=== PATIENT | female | born 1935 | race Caucasian/White ===

== ENCOUNTER → 2016-06-28 | Outpatient (CLI) | payer OTHER ==
[~2016-06-28] MED LIST: AMLO-110 PO; ANT25 PO; ATOR10TA82 PO; FLUT0.15 NAE; GLC/500 PO; POTA10TA PO; PRLSR20 PO; ZNTT/150 PO
--- NOTE | 2016-06-29 15:18 | MAMMOGRAPHY REPORT ---
BILATERAL DIGITAL SCREENING MAMMOGRAM TOMOSYNTHESIS WITH CAD: 06/28/2016 CLINICAL HISTORY: Routine screening examination. TECHNIQUE: Breast tomosynthesis in addition to standard 2D mammography was performed. Current study was also evaluated with a Computer Aided Detection (CAD) system. COMPARISON: Comparison is made to exams dated: 06/25/2015 mammogram, 06/24/2014 mammogram, 06/22/2013 nadja mogram, 06/21/2012 mammogram, 06/16/2011 mammogram, and 03/17/2010 mammogram - [facility] nter. BREAST COMPOSITION: There are scattered areas of fibroglandular density in both breasts. FINDINGS: There are benign-appearing rodlike calcifications throughout each breast. No suspicious m ass, architectural distortion or cluster of microcalcifications is seen. IMPRESSION: ACR BI-RADS CATEGORY 1: NEGATIVE There is no mammographic evidence of malignancy. A 1 year screening mammogram is recommended. The p atient will receive written notification of the results. Approximately 10% of breast cancers are not detected with mammography. A negative mammographic repor t should not delay biopsy if a clinically suggestive mass is present. Aida Canchola M.D. ay/:06/28/2016 16:48:30 [employer] Tank Repairer: Maria UNDERWOOD(Candida)(Dina), [facility] letter sent: Normal 1/2 BI-RADS Code: ACR BI-RADS Category 1: Negative
== END | disposition home or self-care (01) ==
LOC: C.MAMM 13:49
PROVIDERS: ATTEND Family Medicine
DX: Z12.31 Encounter for screening mammogram for malignant neoplasm of breast (principal)

== ENCOUNTER → 2016-07-07 | Outpatient (CLI) | payer OTHER ==
[2016-07-07 20:04] LABS: BLOOD UREA NITROGEN 13 mg/dl (7-18); BUN/CREATININE RATIO 16.1 (10-20); CALCIUM 9.8 mg/dl (8.5-10.1); CARBON DIOXIDE 25 mmol/L (21-32); CHLORIDE 108 mmol/L (98-107); CREATININE 0.78 mg/dl (0.60-1.20); GLUCOSE 88 mg/dl (70-99); POTASSIUM 4.1 mmol/L (3.5-5.1); SODIUM 143 mmol/L (136-145); TRIGLYCERIDES 159 mg/dl (0-150); VERY LOW DENSITY LIPOPROT CALC 32 mg/dl
[2016-07-07 20:08] LABS: CHOLESTEROL 143 mg/dl (0-200); CHOLESTEROL/HDL RATIO 3.2; HDL CHOLESTEROL 45 mg/dl; LDL CHOLESTEROL CALCULATED 66 mg/dl
[2016-07-08 07:34] LABS: ESTIMATED AVERAGE GLUCOSE 120 mg/dl; HA1C FLAG Normal (Normal)
== END | disposition home or self-care (01) ==
LOC: C.LABPVFM 14:16
PROVIDERS: ATTEND Family Medicine
DX: I10 Essential (primary) hypertension (principal); E11.9 Type 2 diabetes mellitus without complications; E78.2 Mixed hyperlipidemia

== ENCOUNTER → 2016-12-29 | Outpatient (CLI) | payer OTHER ==
[~2016-12-29] MED LIST changes: -ATOR10TA82 PO; +ATOR10TA88 PO
[2016-12-29 12:28] LABS: BLOOD UREA NITROGEN 14 mg/dl (7-18); BUN/CREATININE RATIO 17.3 (10-20); CALCIUM 9.5 mg/dl (8.5-10.1); CARBON DIOXIDE 31 mmol/L (21-32); CHLORIDE 108 mmol/L (98-107); CHOLESTEROL 150 mg/dl (0-200); CREATININE 0.83 mg/dl (0.60-1.20); GLUCOSE 105 mg/dl (70-99); POTASSIUM 3.8 mmol/L (3.5-5.1); SODIUM 142 mmol/L (136-145); TRIGLYCERIDES 148 mg/dl (0-150); VERY LOW DENSITY LIPOPROT CALC 30 mg/dl
[2016-12-29 12:31] LABS: CHOLESTEROL/HDL RATIO 3.5; ESTIMATED AVERAGE GLUCOSE 123 mg/dl; HA1C FLAG Normal (Normal); HDL CHOLESTEROL 43 mg/dl; LDL CHOLESTEROL CALCULATED 77 mg/dl
== END | disposition home or self-care (01) ==
LOC: C.LABBFT 10:07
PROVIDERS: ATTEND Family Medicine
DX: Z00.00 Encounter for general adult medical examination without abnormal findings (principal); E11.9 Type 2 diabetes mellitus without complications; E78.2 Mixed hyperlipidemia

== ENCOUNTER 2017-06-12 10:06 | Emergency (ER) | payer OTHER ==
[~2017-06-12] VITALS: Ht 157.5 cm; Wt 75.2 kg
[~2017-06-12 10:06] MED LIST changes: +ATOR10TA82 PO; -ATOR10TA88 PO; +RANI150T85 PO; -ZNTT/150 PO
[2017-06-12 10:09] VITALS: TEMP 37; Ht 157.5 cm; Wt 75.2 kg
[2017-06-12] MEDS ORDERED: AMOXICILLIN/CLAVULANATE TAB 875 MG TAB PO ONE (10:30)
[2017-06-12] MEDS ORDERED: GLC/500 PO (10:43)
--- NOTE | 2017-06-12 10:44 | EMERGENCY ROOM VISIT NOTE ---
History Report prepared by Anthony: Martin Decker Under the Supervision of: Dr. Ed Ang D.O. First contact with patient: 10:12 Chief Complaint: FEVER Stated Complaint: HIGH TEMP, PAIN CHEST AND SINUSES History of Present Illness The patient is an 82 year old female who presents to the Emergency Room with complaints of constant flu-like symptoms beginning three days. The patient states she believes she has a sinus infection. She reports she is experiencing pain in her frontal and maxillary sinuses, a cough, chest tightness, and a fever. The patient notes she did not start antibiotics because she did not have any. She denies any other complaint. Source of History: patient Onset: three days ago Quality: other (flu-like sx) Timing: constant Associated Symptoms: + fevers, + cough Note: Associated symptoms: pain to the frontal and maxillary sinuses, chest tightness Review of Systems See HPI for pertinent positives & negatives. A total of 10 systems reviewed and were otherwise negative. Past Medical & Surgical Medical Problems: (1) Borderline diabetes Family History Patient reports no known family medical history. Social History Smoking Status: Never Smoker Drug Use: none Marital Status: Housing Status: lives with family Occupation Status: retired Current/Historical Medications Scheduled Amlodipine (Norvasc), 5 MG PO QAM Amoxicillin & Pot Clavulanate (Augmentin 875-125 mg), 875 MG PO BID Atorvastatin (Lipitor), 10 MG PO QPM Fluticasone Propionate (Nasal) (Flonase Allergy Relief), 1 SPRAY ANIL QAM Meclizine HCl (Meclizine HCl), 1 TAB PO BID Metformin Hcl (Glucophage), 500 MG PO BID Metformin Hcl (Glucophage), 500 MG PO BID Omeprazole (Prilosec), 20 MG PO QAM Potassium Chloride (K-Tabs), 1 TAB PO BID Allergies Coded Allergies: No Known Allergies (Verified , 06/12/17) Physical Exam Vital Signs Date Time Temp Pulse Resp B/P (MAP) Pulse Ox O2 Delivery O2 Flow Rate FiO2 06/12/17 10:56 91 20 142/77 96 06/12/17 10:09 37.0 98 20 147/80 95 Room Air Physical Exam CONSTITUTIONAL/VITAL SIGNS: Reviewed / noted above. GENERAL: Non-toxic in appearance. INTEGUMENTARY: Warm, dry, and [place]. HEAD: Normocephalic. Tenderness to percussion to the frontal and maxillary sinuses. EYES: without scleral icterus or trauma. ENT/OROPHARYNX: clear and moist. LYMPHADENOPATHY/NECK: Is supple without lymphadenopathy or meningismus. RESPIRATORY: Lungs clear and equal. CARDIOVASCULAR: Regular rate and rhythm. GI/ABDOMEN: Soft and nontender. No organomegaly or pulsatile mass. No rebound or guarding. Normal bowel sounds. EXTREMITIES: Warm and well perfused. BACK: No CVA tenderness. NEUROLOGICAL: Intact without focal deficits. PSYCHIATRIC: normal affect. MUSCULOSKELETAL: Normally developed with good muscle tone. Medical Decision & Procedures Medications Administered Medications (Trade) Dose Ordered Sig/Aleena Route Start Time Stop Time Status Last Admin Dose Admin Amoxicillin/ Clavulanate Potassium (Augmentin Tab) 875 mg ONE ONCE PO 06/12/17 10:30 06/12/17 10:31 DC 06/12/17 10:37 875 MG ED Course 1022: Previous medical records were reviewed. The patient was evaluated in room B10. A complete history and physical examination was performed. I discussed the patient's physical exam with her and the treatment plan. She verbalized complete understandings. The patient will be discharged home after she receives her medication. 1030: Ordered Augmentin Tab 875mg PO Medical Decision Differential includes viral illness, influenza, streptococcal pharyngitis, meningitis, pneumonia, sinusitis, UTI, pyelonephritis, otitis media. This is an 82-year-old female who presents to the ED with a chief complaint that she has a sinus infection. She has had the symptoms for about 3 or 4 days. She reports fullness in her sinuses as well as some congestion and fever. She also reports a cough. The patient's vital signs are normal. Her physical exam revealed tenderness to percussion of the sinuses and the frontal and maxillary regions. She otherwise is in no distress. The patient primarily just wants to be started on antibiotics for her sinus infection. She did not require additional workup at this time. She was discharged on Augmentin. Medication Reconcilliation Current Medication List: was personally reviewed by me Blood Pressure Screening Patient's blood pressure: Elevated blood pressure Blood pressure disposition: Elevated BP felt to be situational Impression Primary Impression: Sinusitis Scribe Attestation The scribe's documentation has been prepared under my direction and personally reviewed by me in its entirety. I confirm that the note above accurately reflects all work, treatment, procedures, and medical decision making performed by me. Departure Information Dispostion Home / Self-Care Prescriptions Amoxicillin & Pot Clavulanate (Augmentin 875-125 mg) 1 Tab Tab 875 MG PO BID, #14 TAB Prov: Ed Ang D.O. 06/12/17 Referrals Richmond Hartman M.D. (PCP) Forms HOME CARE DOCUMENTATION FORM, IMPORTANT VISIT INFORMATION Patient Instructions [facility] Additional Instructions Take Augmentin as prescribed. If not improved in 1 week, see her doctor for further evaluation.
[2017-06-12] MEDS ORDERED: AMOX875T PO (10:51)
[2017-06-12 10:56] VITALS: BP 142/77; PULSE 91; O2SAT 96
== END 2017-06-12 10:57 | disposition home or self-care (01) ==
LOC: C.EDB 10:08
DX: J32.9 Chronic sinusitis, unspecified (principal); R03.0 Elevated blood-pressure reading, without diagnosis of hypertension; R73.03 Prediabetes; Z79.84 Long term (current) use of oral hypoglycemic drugs

== ENCOUNTER → 2017-06-15 | Outpatient (CLI) | payer OTHER ==
[~2017-06-15] MED LIST changes: +AMOX875T PO; -RANI150T85 PO
== END | disposition home or self-care (01) ==
LOC: C.LABBFT 14:04
PROVIDERS: ATTEND Nurse Practitioner
DX: R19.7 Diarrhea, unspecified (principal)

== ENCOUNTER → 2017-06-30 | Outpatient (CLI) | payer OTHER ==
[~2017-06-30] MED LIST changes: -AMOX875T PO
--- NOTE | 2017-07-01 07:46 | MAMMOGRAPHY REPORT ---
BILATERAL DIGITAL SCREENING MAMMOGRAM TOMOSYNTHESIS WITH CAD: 06/30/2017 CLINICAL HISTORY: Routine screening. Patient has no complaints. TECHNIQUE: Breast tomosynthesis in addition to standard 2D mammography was performed. Current study was also evaluated with a Computer Aided Detection (CAD) system. COMPARISON: Comparison is made to exams dated: 06/28/2016 mammogram, 06/25/2015 mammogram, 06/24/2014 nadja mogram, 06/22/2013 mammogram, 06/21/2012 mammogram, and 06/16/2011 mammogram - [facility] BREAST COMPOSITION: There are scattered areas of fibroglandular density in both breasts. FINDINGS: No suspicious masses, calcifications, or areas of architectural distortion are noted in ei ther breast. There has been no significant interval change compared to prior exams. Scattered bilater al benign-appearing calcifications are not significantly changed. Asymmetry in the right lateral rachelle ast middle depth on the cc view appears similar to prior exams including the 2008 exam. IMPRESSION: ACR BI-RADS CATEGORY 2: BENIGN There is no mammographic evidence of malignancy. A 1 year screening mammogram is recommended. The pa tient will receive written notification of the results. Approximately 10% of breast cancers are not detected with mammography. A negative mammographic report should not delay biopsy if a clinically suggestive mass is present. Italia Altamirano M.D. /:06/30/2017 14:38:07 Provider Relations Rep: Sandra CAMACHO)(Dina), [facility] letter sent: Normal 1/2 BI-RADS Code: ACR BI-RADS Category 2: Benign
== END | disposition home or self-care (01) ==
LOC: C.MAMM 13:50
PROVIDERS: ATTEND Internal Medicine
DX: Z12.31 Encounter for screening mammogram for malignant neoplasm of breast (principal)

== ENCOUNTER → 2017-10-24 | Outpatient (CLI) | payer OTHER ==
[~2017-10-24] MED LIST changes: -AMLO-110 PO; +AMLO5TAB3 PO
[2017-10-24 12:50] LABS: HEMOGLOBIN A1C 5.5 % (4.5-5.6)
[2017-10-24 12:59] LABS: ALBUMIN 3.5 gm/dl (3.4-5.0); ALKALINE PHOSPHATASE 79 U/L (45-117); ALT/SGPT 26 U/L (12-78); AST/SGOT 33 U/L (15-37); BLOOD UREA NITROGEN 12 mg/dl (7-18); CALCIUM 8.9 mg/dl (8.5-10.1); CARBON DIOXIDE 28 mmol/L (21-32); CHOLESTEROL 136 mg/dl (0-200); CREATININE 0.74 mg/dl (0.60-1.20); GLUCOSE 109 mg/dl (70-99); LDL CHOLESTEROL CALCULATED 72 mg/dl; POTASSIUM 3.9 mmol/L (3.5-5.1); SODIUM 139 mmol/L (136-145); TOTAL PROTEIN 7.6 gm/dl (6.4-8.2)
== END | disposition home or self-care (01) ==
LOC: C.LABBFT 09:47
PROVIDERS: ATTEND Internal Medicine
DX: Z00.00 Encounter for general adult medical examination without abnormal findings (principal); E11.9 Type 2 diabetes mellitus without complications; E78.2 Mixed hyperlipidemia; I10 Essential (primary) hypertension

== ENCOUNTER 2023-04-12 11:47 | Observation (INO) ==
--- NOTE | 2023-04-11 13:55 | Anesthesiology Consultation ---
Date of Service April 11, 2023 Assessment & Plan (1) Encounter for pre-operative examination: Chart Review Chart Review: Acceptable Risk for Surgery and Patient NOT seen in Pre Admission Testing - Check BSG AM DOS -Infectious Disease screening: Per PAT nursing assessment on 04/11/23. No known infectious disease contacts in past 10 days or current infectious disease symptoms. No recent travel outside the country. Patient seen in [facility] 04/07/23= Patient seen for shoulder pain. Had a fall while taking dogs outslipped on snow. Diagnosed with humeral head fracture on left side, fall, cervical strain. Placed in sling. Patient will follow-up with orthopedic surgeon in the morning as outpatient. History Surgery Operation Date: 04/12/23 13:55 Proposed Procedures p Left Fracture Reverse Total Shoulder Arthroplasty - Vick Ernst DO Height/Weight Height: 5 ft 2 in Weight: 77.111 kg Allergies Allergy/AdvReac Type Severity Reaction Status Date / Time No Known Allergies Allergy Unknown Verified 04/12/23 12:38 Medications Home Medications Medication Instructions Recorded Confirmed Last Taken fluocinonide 0.05 % topical 1 appln topical BID PRN itching of 12/20/18 04/12/23 Unknown solution scalp #20 mL triamcinolone acetonide 0.1 % 1 appln topical BID PRN itching 09/25/19 04/12/23 Unknown topical cream #454 grams fluticasone propionate 50 2 spray intranasal DAILY #3 device 04/19/22 04/12/23 04/07/23 mcg/actuation nasal spray,suspension (Flonase Allergy Relief) ondansetron 4 mg disintegrating 4 mg PO Q6H PRN nausea and 09/15/22 04/12/23 Unknown tablet vomiting #30 tabs gabapentin 300 mg capsule See Rx Instructions .Route 11/16/22 04/12/23 04/10/23 21:00 .COMPLEX #270 caps meclizine 25 mg tablet 25 mg PO BID PRN vertigo 11/29/22 04/12/23 04/11/23 09:00 #180 tabs azelastine 137 mcg (0.1 %) nasal 2 spray intranasal BID #30 mL 01/18/23 04/12/23 04/07/23 spray aerosol tramadol 50 mg tablet 50 mg PO BID PRN pain #60 tabs 01/18/23 04/12/23 Unknown omega-3 fatty acids 1,000 mg 3,000 mg PO DAILY 04/07/23 04/12/23 04/07/23 capsule atorvastatin 10 mg tablet (Lipitor) 10 mg PO QAM 04/11/23 04/12/23 04/10/23 21:00 furosemide 40 mg tablet 20 mg PO QAM 04/11/23 04/12/23 04/07/23 hydrocodone 5 mg-acetaminophen 325 1 - 2 tab PO Q6 PRN pain #20 tabs 04/11/23 04/12/23 04/09/23 mg tablet losartan 25 mg tablet 25 mg PO QAM 04/11/23 04/12/23 04/11/23 09:00 metformin 500 mg tablet,extended 500 mg PO HS 04/11/23 04/12/23 04/11/23 21:00 release 24 hr omeprazole 20 mg capsule,delayed 20 mg PO QAM 04/11/23 04/12/23 04/10/23 09:00 release potassium chloride 10 mEq 10 meq PO QAM 04/11/23 04/12/23 Unknown capsule,extended release Past Medical History Medical History Acid reflux Allergic rhinitis Coccydynia Diverticulosis of colon Hiatal hernia Hip pain, bilateral History of basal cell carcinoma (BCC) left ear Hyperlipidemia Hypertension Kidney stones passed on own Lumbar stenosis with neurogenic claudication Migraine "silent" gets floaters Moderate aortic stenosis echo 06/2021 > no cardio Osteoarthritis Spinal stenosis Splenomegaly Type 2 diabetes mellitus NIDDM Past Family History Family History Sister Brain tumor Unknown Brain tumor Denies family history of Ovarian cancer Prostate cancer Breast cancer Colorectal cancer Past Surgical History Surgical History H/O: hysterectomy History of colonoscopy History of repair of right rotator cuff History of tooth extraction Hx of nasal polypectomy S/P cholecystectomy Social History Smoking Status: Never smoker Do You Dip or Chew Tobacco: No Hx Alcohol Use: No Hx Substance Use: No substance use type: does not use Physical Exam Vital Signs Last Vital Signs Temp 37.5 C 04/12/23 12:52 Pulse 91 H 04/12/23 12:52 Resp 20 04/12/23 12:52 BP 153/50 H 04/12/23 12:52 Pulse Ox 94 04/12/23 12:52 O2 Del Method Room Air 04/12/23 12:52 Lab Results Anesthesia Preop Results Results Anesthesia Widget: WBC 6.77 K/ul (4.8-10.8) 04/07/23 Hgb 11.3 g/dl (12.0-16.0) L 04/07/23 Hct 33.5 % (37.0-47.0) L 04/07/23 Plt 116 K/uL (130-400) L 04/07/23 Na 140 mmol/L (136-145) 04/07/23 K 4.0 mmol/L (3.5-5.1) 04/07/23 Cl 108 mmol/L (98-107) H 04/07/23 CO2 27 mmol/L (21-32) 04/07/23 BUN 16 mg/dl (6-23) 04/07/23 Creat 0.70 mg/dl (0.6-1.2) 04/07/23 Glucose Level 139 mg/dl (70-99(Fasting)) H 04/07/23 POC Glucose 118 mg/dl (70-99) H 04/12/23 PT 13.5 Seconds (9.0-12.0) H 04/12/23 PTT 27 Seconds (21-31) 04/12/23 INR 1.2 (0.9-1.1) H 04/12/23 Blood Type Pending 04/12/23 Antibody Screen Pending 04/12/23 Testing Laboratory Results PT 13.5 Seconds (9.0-12.0) H 04/12/23 12:34 INR 1.2 (0.9-1.1) H 04/12/23 12:34 APTT 27 Seconds (21-31) 04/12/23 12:34 04/12/23 12:21 POC Glucose 118 H Electrocardiogram Date: 04/07/23 Findings: + NSR @ (75bpm) Normal EKG per cardio Chest X-Ray Date: 04/07/23 FINDINGS: No pneumothorax. No pleural effusions. Prior cholecystectomy. Bibasilar linear densities favor subsegmental atelectasis. Otherwise, lungs are clear. No evidence for pulmonary edema. The heart remains mildly enlarged. There is a mildly tortuous and partially calcified thoracic aorta, unchanged. Left humeral head/neck fracture again noted. IMPRESSION: An acute left humeral head/neck fracture. Echocardiogram Date: 06/25/21 EF: >70% Other Findings: no LVH Hyperdynamic LV systolic function Normal RV systolic function Mild left atrial dilation Mild to moderate aortic stenosis. The calculated aortic valve area and dimensionless valve index are consistent with moderate stenosis. Mean gradient across the valve is consistent with mild stenosis. (ARLETTE 0.98cm2; AV max velocity 2.735m/s; AV mean P.66mmHg) Trace AR. Trace MR. Trace R Mildly elevated estimated RVSP (34mmHg) Other Testing Head CT 04/07/2023 = no acute intracranial hemorrhage, midline shift, or mass effect Cervical spine CT 04/07/2023 = no acute fracture or subluxation of cervical spine
[~2023-04-12 11:47] MED LIST changes: +ACETAMINOPHEN 500 MG TAB PO SCH; -AMLO5TAB3 PO; -ANT25 PO; -ATOR10TA82 PO; +BUPIVACAINE 0.5 % 5 MG/1 ML PF 10ML VIAL ONE; +FAMOTIDINE 20 MG TAB PO SCH; -FLUT0.15 NAE; +GABAPENTIN 300 MG CAP PO SCH; -GLC/500 PO; +LR 15ML/HR IV SCH; +LR 60ML/HR IV SCH; -POTA10TA PO; -PRLSR20 PO; +ROPIVACAINE 0.5% HCL/PF 246 MG, Ketorolac (*for OR use only*) 30 MG, EPINEPHrine 30MG/3... INFIL SCH; +TRANEXAMIC ACID 1,000 MG **IV Intra-op IV SCH; +TRANEXAMIC ACID 1,000 MG **IV Pre-op IV SCH; +ceFAZolin 2000MG 2,000 MG/15 ML SYR IV SCH; +dexAMETHasone**PF** 10 MG/ML VIAL IV SCH
--- NOTE | 2023-04-12 12:44 | History & Physical Bridge Note ---
Date of Service April 12, 2023 History & Physical Bridge Note I have examined the patient, reviewed the History & Physical and in the interval since the performance of the History & Physical I have noted the following changes of clinical significance: no changes noted
[2023-04-12 13:11] LABS: INR 1.2 (0.9-1.1); Partial Thromboplastin Time 27 Seconds (21-31); Prothrombin Time 13.5 Seconds (9.0-12.0)
[2023-04-12] MEDS ORDERED: ceFAZolin 2000MG 2,000 MG/15 ML SYR IV ONE (13:22)
[2023-04-12] MEDS ORDERED: TRANEXAMIC ACID / 0.7% NACL 1,000 MG/100 ML BAG IV ONE (13:23)
[2023-04-12] MEDS ORDERED: fentaNYL citrate PF 100 MCG/2 ML VIAL ONE (14:03)
[2023-04-12] MEDS ORDERED: LIDOCAINE 2% 2 ML VIAL/AMP(20MG/ML) INFIL ONE (14:27)
[2023-04-12] MEDS ORDERED: PROPOFOL IV EMULSION 10 MG/ML 20 ML VIAL IV ONE (14:27)
[2023-04-12] MEDS ORDERED: ONDANSETRON INJ 2 MG/ML 2 ML VIAL ONE (14:27)
[2023-04-12] MEDS ORDERED: ROPIV 0.5% 246mg, Ketorolac 30mg, EPINEPHrine 0.5mg in NSS INFIL SCH (15:00)
[2023-04-12] MEDS ORDERED: fentaNYL citrate PF 100 MCG/2 ML VIAL IV PRN (15:38)
[2023-04-12] MEDS ORDERED: ONDANSETRON INJ 2 MG/ML 2 ML VIAL IV PRN ×2 (15:38→18:21)
[2023-04-12] MEDS ORDERED: LABETALOL HCL IV 5 MG/ML 20ML IV PRN (15:38)
[2023-04-12] MEDS ORDERED: PROMETHAZINE HCL 12.5 MG in SODIUM CHLORIDE 0.9% 50 ML IV PRN (15:38)
[2023-04-12] MEDS ORDERED: NALOXONE HCL 0.4 MG/1 ML VIAL/CARP IV PRN ×2 (15:38→18:21)
[2023-04-12] MEDS ORDERED: ePHEDrine sulfate 50 MG/ML AMP IV PRN (15:38)
[2023-04-12] MEDS ORDERED: ATROPINE SULFATE 0.1 MG/ML 10ML SYR IV PRN (15:38)
[2023-04-12] MEDS ORDERED: ePHEDrine sulfate 50 MG/5 ML SYR ONE (15:51)
[2023-04-12] MEDS ORDERED: ROCURONIUM BROMIDE 10 MG/ML 5 ML VIAL IV ONE (15:51)
--- NOTE | 2023-04-12 16:47 | Operative Report ---
PG Post Operative Report Pre & Post Diagnosis Operation Date: 04/12/23 13:55 Pre-Op Diagnosis: Four-part left proximal humerus fracture Post-Op Diagnosis: Four-part left proximal humerus fracture I identified the patient and participated in the time-out.: Yes Procedure Operation Date: 04/12/23 13:55 Actual Procedures p Left Fracture Reverse Total Shoulder Arthroplasty(Left) with open biceps tenodesis as a distinct and separate procedure (modifier 59)- Vick Ernst DO Surgeon Vick Ernst DO Interlocker López Avalos PA-C Estimated Blood Loss 200 Findings Consistent with Post-Op Diagnosis Specimens Left humeral head Description of Procedure A CPT code modifier 59: The long head of the biceps tendon was frayed and damaged secondary to the fracture. A tenodesis was opted. This was a separate and distinct portion of the procedure. For these reasons, a CPT code modifier 59 will be added to this case. Implants used: I used a Biomet Comprehensive fracture reverse total shoulder arthroplasty system with a size 12 press fit standard fracture humeral stem, a +6 offset humeral tray and a standard humeral bearing, a 25 mm small augment baseplate with a 6.5 mm central screw and superior and inferior locking screws, and a size 36 mm eccentric glenosphere. Kami arrived at [facility] for the above procedure. She was seen in the preoperative holding area and the operative extremity was identified and signed. She was given a preoperative antibiotic, TXA, and an interscalene nerve block. She was taken back to the operating room, laid on table in supine position, and put under general anesthesia. She was then put into the beachchair position. The shoulder was then prepped and draped in sterile fashion. A timeout was done and the patient and the operative extremity was properly identified. A deltopectoral approach was used. Dissection was taken down through the fascia and the deltoid was retracted laterally and the conjoined tendon was retracted medially. The fracture was easily exposed. The biceps groove was opened up and the biceps tendon was examined extensively. The biceps tendon demonstrated fraying and damage secondary to the trauma and fracture. The long head of the biceps tendon was then tenodesed to the upper border of the pectoralis major. This was a separate and distinct portion of the procedure. An oscillating saw and osteotome were then used to separate the lesser tuberosity fragment and the greater tuberosity fragment from the humeral head. The humeral head was then removed. Time was then spent shaping the greater and lesser tuberosities. Four #5 FiberWire sutures were passed through the infraspinatus at its articular junction. These would later be used for a repair of the rotator cuff around the prosthesis. The glenoid was then easily exposed. Time was spent doing a complete circumferential capsular release. The glenoid guide was then placed in the inferior aspect of the glenoid. A 3.2 mm Steinmann pin was then placed into the glenoid vault at 10 of inclination. The glenoid baseplate was then reamed. The final size 25 mm small augment baseplate was then impacted in the place. A 6.5 mm central screw was then placed followed by superior and inferior locking screws. A 36 mm eccentric glenosphere was then impacted into place. Surrounding soft tissues were then injected with 100 cc an orthopedic pain control cocktail. The proximal humerus was then exposed. A canal finding reamer was sent down the center of the humeral canal. Sequential reaming up to a size 12 reamer was done. A 12 trial humeral stem was then impacted into place at 25 degrees of retroversion. A +6 offset humeral tray was then placed on the humeral trial stem and the shoulder was reduced. The shoulder was brought through a full range of motion and felt to be stable. Two #5 FiberWire sutures were passed through the humeral shaft for later rotator cuff and tuberosity fixation. The final size 12 standard fracture humeral stem was then impacted into place. A standard humeral bearing was snapped onto a +6 offset humeral tray. The humeral tray was then impacted on the humeral stem. The shoulder was then reduced. The shoulder was brought through a full range of motion and felt to be stable. 2 of the FiberWire sutures were passed through the holes of the fracture stem and passed around the stem to reduce the greater tuberosity. 2 additional sutures were passed through holes of the fracture stem and passed around the stem to reduce the lesser tuberosity. The 2 humeral shaft sutures were used to pull down the lesser tuberosity and the greater tuberosity to keep them from migrating medially. The shoulder was brought through a full range of motion. I was happy with the overall reduction of the tuberosities and the motion of the shoulder. A dilute betadyne lavage was then done for 3 minutes. The joint was then irrigated with normal saline solution. Hemostasis was obtained. The interval was closed with 2-0 Vicryl suture. The skin was then closed with 2-0 Vicryl and janette. A Silverlon dressing was placed and the arm was rested in a regular arm sling. She was then extubated and transferred to a hospital bed. She taken to the postanesthesia care unit in stable condition. She tolerated the procedure well. López Avalos PA-C, was present for the entire procedure. He was critical for patient positioning, prepping, draping, retraction exposure, wound closure and application of sterile dressing. I attest to the content of the Intraoperative Record and any orders documented therein. Any exceptions are noted below.
[2023-04-12] MEDS ORDERED: SUGAMMADEX SODIUM 200 MG/2 ML VIAL IV ONE (16:58)
--- NOTE | 2023-04-12 17:46 | Anesthesiology Progress Note ---
Date of Service April 12, 2023 Anesthesia Post Procedure Vital Signs Vital Signs: Temp Pulse Pulse Resp BP Pulse Ox O2 Del Method 04/12/23 17:35 102 H 17 149/61 H 95 Nasal Cannula 04/12/23 17:25 103 H 17 146/55 H 96 Nasal Cannula 04/12/23 17:18 36.8 C 102 H 20 132/61 96 Nasal Cannula 04/12/23 12:52 37.5 C 91 H 20 153/50 H 94 Room Air O2 Flow Rate 04/12/23 17:35 2 04/12/23 17:25 2 04/12/23 17:18 2 04/12/23 12:52 Pain Intensity Left Shoulder: Pain Intensity: 4 Transfer of Care Handoff Completed per policy Notes Mental Status: alert / awake / arousable Patient Amnestic to Procedure: Yes Nausea / Vomiting: adequately controlled Pain: adequately controlled Airway Patency, RR, SpO2: stable & adequate BP & HR: stable & adequate Hydration State: stable & adequate Anesthetic Complications: no major complications apparent
--- NOTE | 2023-04-12 17:53 | XRay Report ---
XR shoulder LT min 2V routine HISTORY: 87 years-old Female Post shoulder surgery left shoulder arthroplasty COMPARISON: Left humerus radiograph 04/07/2023 TECHNIQUE: 2 views of the left shoulder FINDINGS: Left shoulder arthroplasty with obliquely oriented proximal diaphyseal left humeral fracture demonstr ating 3 mm of displacement. Expected postoperative soft tissue swelling with deep tissue air. IMPRESSION: 1. Satisfactory alignment of the left shoulder arthroplasty. 2. Acute minimally displaced left proximal humeral fracture. ACT 112: Negative or not required by law. The above report was generated using voice recognition software. It may contain grammatical, syntax o r spelling errors. Electronically signed by: Matthew Brown M.D. 04/12/2023 5:52 PM
[2023-04-12] MEDS ORDERED: oxyCODONE HCL IR 5 MG TAB (IMMEDIATE RELEASE) PO PRN (18:21)
[2023-04-12] MEDS ORDERED: bisacodyL 10 MG SUPP PR PRN (18:21)
[2023-04-12] MEDS ORDERED: PHARMACY GLYCEMIC MGMT CONSULT PRN (18:21)
[2023-04-12] MEDS ORDERED: MAGNESIUM HYDROXIDE SUSP 30 ML UDC PO PRN (18:21)
[2023-04-12] MEDS ORDERED: METOCLOPRAMIDE HCL INJ 5 MG/ML 2 ML VIAL IV PRN (18:21)
[2023-04-12] MEDS ORDERED: HYDROmorphone INJ 0.5 MG/0.5 ML SYR IV PRN (18:21)
[2023-04-12] MEDS ORDERED: traMADol HCL 50 MG TABLET PO PRN ×2 (18:21)
[2023-04-12] MEDS: SODIUM CHLORIDE 0.9% 1,000 ML IV SCH (18:30)
[2023-04-12] MEDS: metFORMIN HCL ER 500 MG TABCR PO SCH (18:37)
[2023-04-12] MEDS: KETOROLAC TROMETHAMINE 15 MG/ML VIAL IV SCH (18:47)
[2023-04-12] MEDS ORDERED: DEXTROSE 50% 50 ML SYRINGE IV PRN (19:00)
[2023-04-12] MEDS ORDERED: CARBOHYDRATES FOR HYPOGLYCEMIA PO PRN (19:00)
[2023-04-12] MEDS ORDERED: GLUCOSE 10 TAB/TUBE PO PRN (19:00)
[2023-04-12] MEDS ORDERED: GLUCAGON FOR INJ 1 MG VIAL IM PRN (19:00)
[2023-04-12] MEDS ORDERED: GLUCOSE 40% GEL 15 GM TUBE PO PRN (19:00)
[2023-04-12] MEDS: DOCUSATE SODIUM 100 MG CAP PO SCH (20:09)
[2023-04-12] MEDS: INSULIN ASPART PER UNIT CHARGE SC SCH (20:35)
[2023-04-12] MEDS ORDERED: GABAPENTIN 300 MG CAP PO SCH ×2 (21:00)
[2023-04-12] MEDS ORDERED: SENNA 8.6 MG TAB PO SCH (21:00)
[2023-04-12] MEDS: ACETAMINOPHEN 500 MG TAB PO SCH (22:49)
[2023-04-12] MEDS: ceFAZolin 2000MG 2,000 MG/15 ML SYR IV SCH (22:50)
[2023-04-13] MEDS: KETOROLAC TROMETHAMINE 15 MG/ML VIAL IV SCH ×2 (00:42→05:14)
[2023-04-13] MEDS ORDERED: INSULIN ASPART PER UNIT CHARGE SC ONE (02:00)
[2023-04-13] MEDS: SODIUM CHLORIDE 0.9% 1,000 ML IV SCH (04:43)
[2023-04-13] MEDS: ACETAMINOPHEN 500 MG TAB PO SCH (05:14)
[2023-04-13] MEDS: ceFAZolin 2000MG 2,000 MG/15 ML SYR IV SCH (06:26)
[2023-04-13 07:43] LABS: Estimated Average Glucose 111 mg/dl; Hemoglobin A1C 5.5 % (4.5-5.6)
[2023-04-13] MEDS: INSULIN ASPART PER UNIT CHARGE SC SCH (07:47)
[2023-04-13] MEDS: DOCUSATE SODIUM 100 MG CAP PO SCH (08:48)
[2023-04-13] MEDS: metFORMIN HCL ER 500 MG TABCR PO SCH (08:49)
[2023-04-13] MEDS ORDERED: FUROSEMIDE 20 MG TAB PO SCH (09:00)
[2023-04-13] MEDS ORDERED: PANTOprazole 40 MG TAB PO SCH (09:00)
[2023-04-13] MEDS ORDERED: LOSARTAN POTASSIUM 25 MG TAB PO SCH (09:00)
[2023-04-13] MEDS ORDERED: GABAPENTIN 300 MG CAP PO SCH (09:00)
[2023-04-13] MEDS ORDERED: MULTIVITAMIN TAB PO SCH (09:00)
[2023-04-13] MEDS ORDERED: ATORVASTATIN 10 MG TAB PO SCH (09:00)
--- NOTE | 2023-04-13 11:05 | Orthopedic Progress Note ---
Date of Service April 13, 2023 Assessment & Plan (1) Status post reverse arthroplasty of left shoulder: Overall, she is doing quite well today with good pain control to the left upper extremity. Her nerve block is still active as of this morning. I did tell her that this should start weaning off within the next 24 to 48 hours. She will be seen by physical therapy later this morning to work on range of motion exercises. She can be discharged home later this morning pending physical therapy evaluation. She will follow-up in 2 weeks with orthopedics for postoperative care. Subjective . Kami was seen and evaluated today at bedside resting comfortably in no apparent distress. She notes that her pain is well-controlled to the left shoulder. She does note that her nerve block is currently still working. She has yet to work physical therapy this morning. She has been out of bed with no significant issues. She denies any other concerns today. Review of Systems All systems reviewed & are unremarkable except as noted in HPI & below. Physical Exam . On physical examination of the left upper extremity, her dressings are clean, dry, and intact. Her left arm is currently immobilized. She does note numbness throughout the left upper extremity. She does have slight movement in all 5 digits. +2 radial pulse. Less than 2-second capillary refill. Normal sensation otherwise of what is already stated. Neurovascular intact. Results & Data Results & Data Laboratory Results . Diagnostic Findings . Postoperative x-rays of the left shoulder show prosthesis to be well-seated with no loosening of the prosthesis. There is an acute minimally displaced left proximal humerus fracture with no hardware failure noted. PG Care Time/CCT Total # of Minutes Spent Total Time Spent with Patient: Total time spent is greater than 50% in coordination of care (as documented) at patient's floor/unit and/or counseling patient: Coding Level of Care Code 15995 Post Operative Follow-Up Diagnoses Status post reverse arthroplasty of left shoulder Z96.612
--- NOTE | 2023-04-13 11:06 | Discharge Summary ---
Date of Service April 13, 2023 Principal Diagnosis Same as "Discharge Diagnosis" noted below under Discharge Instructions. Discharge Exam . On physical examination of the left upper extremity, her dressings are clean, dry, and intact. Her left arm is currently immobilized. She does note numbness throughout the left upper extremity. She does have slight movement in all 5 digits. +2 radial pulse. Less than 2-second capillary refill. Normal sensation otherwise of what is already stated. Neurovascular intact. Discharge Data Procedures Performed Operation Date: 04/12/23 13:55 Actual Procedures p Left Fracture Reverse Total Shoulder Arthroplasty(Left) - Vick Ernst DO Ordered Studies 04/12/23 05:00 US - OR guided needle placemen Routine Hospital Course (1) Status post reverse arthroplasty of left shoulder: On April 12, 2023 Kami arrived at [facility] and underwent a left fracture reverse total shoulder arthroplasty performed by Dr. Ernst with no complications. She had a general anesthetic. Postoperatively, she was transferred to the PACU for immediate postoperative care and then to the general orthopedic floor in stable condition. Her hospital course was uneventful. On postoperative day #1, her pain was well-controlled and her vital signs were stable. She participated well with physical therapy working on range of motion exercises. She was then discharged home in stable condition. She will follow- up with orthopedics in 2 weeks for postoperative care. PG Care Time/CCT Total # of Minutes Spent Total Time Spent with Patient: Total time spent is greater than 50% in coordination of care (as documented) at patient's floor/unit and/or counseling patient: Discharge Plan Discharge Items Patient Disposition: Home - Home Health Services Reason For Visit: POST OP CARE Discharge Diagnosis: Same Activity: Per Instructions section Non-emergency contact: Surgeon Call non-emergency contact if: your temperature is above 101.5, your wound has increased redness and your wound has increased drainage Follow-up/Referrals: Jennifer Le MD [Primary Care Provider] - Diet: Regular Addtl Attending Provider Instructions: Activity and Therapy Recommendations: * If you are using [facility] then therapy will be provided at your home until they feel you have accomplished all of your goals. * If you are using [facility] then Physical Therapy will be provided until they feel you are ready to start Outpatient Physical Therapy. * If you are not using home therapy then Outpatient Physical Therapy should start about 3-5 days from your day of surgery. Therapy will last about 8-12 weeks * Wear your sling for 3 weeks, unless otherwise instructed. You may remove your sling to shower and to dress, but otherwise, you should be in your sling at all times, including while sleeping * The shoulder replacement is very stable and you can use your hand while in the sling * You were shown a series of exercises in the hospital. Do these exercises daily including the exercises you were shown in physical therapy. Medications: * Narcotic You will likely be sent home from the hospital with a prescription for the narcotic pain medication that worked best throughout your stay. * Cefadroxi-take the antibiotic twice a day for 10 days to help with infection. * Other medications may be prescribed for specific circumstances. If you have any questions, please call the office at . * Resume previous home medications unless otherwise instructed Dressing Care: Leave the Silverlon dressing in place for 7 days. After 7 days you may remove the dressing. If the incision is not draining then you may leave the janette open to air. If there is a little bit of drainage or if the janette are getting stuck on your clothing then cover the incision with a dry dressing. The janette will be removed at your 2 week follow-up appointment. Showering: You may shower with the Silverlon dressing in place. Do not let the shower spray hit the dressing directly. Pat the Silverlon dressing dry. If the dressing becomes wet underneath, then simply remove the dressing. Keep the incision dry until you are 7 days out from the day of surgery. After 7 days you may remove the Silverlon dressing and shower with the janette exposed. Let soapy water run over the janette and pat them dry. Do not scrub or soak the incision. Things To Watch For: * Drainage from the incision site that occurs more than one week after your surgery. * Increased redness at the incision site. * Fever above 102 degrees Fahrenheit. * Unusual chest pain or shortness of breath. * Call [facility] at with any of the above problems Follow-Up Visit: Follow-up with Dr. Ernst's PA (Vick Worthy) 2-3 weeks after your day of surgery. He will remove your janette and answer any questions. If you have any additional questions or concerns, Dr Ernst is usually in the office at the same time and will be available An appointment was probably scheduled when you signed-up for surgery in the office. If you have any questions call More detailed instructions as well as Frequently Asked Questions were provided in a folder by our office when you signed-up for surgery. Please review these instructions when you get home. If you have any further questions or concerns, please feel free to call the office at [phone] Pending Studies at Discharge: No Stand-Alone Forms: My [facility], Pain - Opioid Pain Management, Smoking Cessation Medications and DC Order Prescriptions: New oxycodone 5 mg Tablet 5 mg PO Q6 PRN (Reason: pain) Qty: 30 0RF cefadroxil 500 mg capsule 500 mg PO BID 10 Days Qty: 20 0RF Continued fluticasone propionate [Flonase Allergy Relief] 50 mcg/actuation spray,suspension 2 spray INTNAS DAILY Qty: 3 3RF gabapentin 300 mg capsule See Rx Instructions .ROUTE .COMPLEX Qty: 270 3RF Rx Instructions: Take 2 cap in AM and 1 caps at bedtime; meclizine 25 mg tablet 25 mg PO BID PRN (Reason: vertigo ) Qty: 180 3RF fluocinonide 0.05 % solution 1 appln TOP BID PRN (Reason: itching of scalp) Qty: 20 3RF azelastine 137 mcg (0.1 %) aerosol,spray 2 spray intranasal BID Qty: 30 2RF Rx Instructions: administer into each nostril triamcinolone acetonide 0.1 % cream 1 appln TOP BID PRN (Reason: itching) Qty: 454 1RF ondansetron 4 mg tablet,disintegrating 4 mg PO Q6H PRN (Reason: nausea and vomiting) Qty: 30 0RF omega-3 fatty acids 1,000 mg Capsule 3,000 mg PO DAILY furosemide 40 mg tablet 20 mg PO QAM potassium chloride 10 mEq capsule, extended release 10 meq PO QAM atorvastatin [Lipitor] 10 mg tablet 10 mg PO QAM losartan 25 mg tablet 25 mg PO QAM omeprazole 20 mg capsule,delayed release(DR/EC) 20 mg PO QAM metformin 500 mg tablet extended release 24 hr 500 mg PO HS Discontinued hydrocodone-acetaminophen 5-325 mg tablet 1 - 2 tab PO Q6 PRN (Reason: pain) Qty: 20 0RF tramadol 50 mg tablet 50 mg PO BID PRN (Reason: pain) Qty: 60 5RF Krames/Other Patient Handouts: Managing Type 2 Diabetes, Total Shoulder Replacement Surgery, Shoulder Replace Home Recovery Admission Data Admit Date/Time: 04/12/23 17:16 Attending Provider: Vick Ernst Admit Provider: Vick Ernst Primary Care Provider: Jennifer Le Other Providers: [facility] Other Interventions: Discharge Summary Assessment (RN) Last Done: 04/13/23 10:05
== END 2023-04-13 11:08 | disposition home health service (06) ==
LOC: 3W 11:47 → ASU 11:47
DX: S42.292A Other displaced fracture of upper end of left humerus, initial encounter for closed fracture; E78.5 Hyperlipidemia, unspecified; E66.9 Obesity, unspecified; Z79.84 Long term (current) use of oral hypoglycemic drugs; I10 Essential (primary) hypertension; W00.0XXA Fall on same level due to ice and snow, initial encounter; Z79.899 Other long term (current) drug therapy; Z68.29 Body mass index [BMI] 29.0-29.9, adult; K21.9 Gastro-esophageal reflux disease without esophagitis; Z79.1 Long term (current) use of non-steroidal anti-inflammatories (NSAID)